=== PATIENT | male | born 1945 | race Caucasian/White ===

== ENCOUNTER 2016-04-24 13:37 | Emergency (ER) | payer MEDICARE ==
[~2016-04-24] VITALS: Ht 180.3 cm; Wt 104.6 kg
[~2016-04-24 13:37] MED LIST: AMLO10 PO; ASPI81 PO; ATEN1TAB75 PO; ATOR40TA49 PO; AVOD0.5C PO; HYOS1SUB; LISI40TA PO
[2016-04-24 13:44] VITALS: BP 142/88; PULSE 91; RESP 18; TEMP 99.7; O2SAT 91
[2016-04-24] MEDS ORDERED: SODIUM CHLORIDE 0.9% FLUSH 5 ML FLUSH IVF PRN (14:15)
--- NOTE | 2016-04-24 14:39 | PD ---
HPI Chief Complaint: Abdominal Pain Time Seen by Provider: 14:21 Travel History International Travel<30 days: No Contact w/Intl Traveler<30days: No Traveled to known affect area: No History of Present Illness HPI This 71-year-old man who presents to the emergency department complaining of pain in lower abdominal cramping as well as bloody stools. He states he's had symptoms off and on for a couple weeks. He's had worsening pelvic or abdominal pain and cramping. He saw his urologist eutherasto prostatitis and put him on Cipro. He's been taking this for a little over a week. Low-grade fevers. He started developing worsening lower abdominal pain and cramping especially in his left for abdomen as well as stool changes including mucoid stools and bloody stools. Only past abdominal surgical history is remote appendectomy. Colonoscopy about 2 years ago or so with a removed a polyp, unclear. Diverticular disease or not. He otherwise has been feeling generally well and healthy. History Past Medical History Narrative Medical History of prostatitis, on Cipro now Chronic kidney disease CAD, status post stent Hypertension hyperlipidemia Social History Alcohol Use: Yes ("occasionally" BEER, WINE) Tobacco Use: No Allergies-Medications (Allergen,Severity, Reaction): Coded Allergies: Levaquin (Verified Allergy, Severe, HIVES, 04/24/16) Reported Meds & Prescriptions Reported Meds & Active Scripts Active Reported Cipro (Ciprofloxacin HCl) 500 Mg Tab 500 Mg PO BID Hyoscyamine (Hyoscyamine Sulfate) 0.125 Mg Tab 0.125 Mg PO Q6H Lisinopril 40 Mg Tab 40 Mg PO DAILY Atorvastatin (Atorvastatin Calcium) 40 Mg Tab 40 Mg PO HS Atenolol 50 Mg Tab 50 Mg PO BID Aspirin Low Dose (Aspirin) 81 Mg Chew 81 Mg CHEW DAILY Amlodipine (Amlodipine Besylate) 10 Mg Tab 10 Mg PO DAILY Review of Systems Except as stated in HPI: all other systems reviewed are Neg Physical Exam Narrative GENERAL: Well-appearing 71-year-old man, no acute distress. SKIN: Warm and dry. HEAD: Atraumatic. Normocephalic. EYES: Pupils equal and round. No scleral icterus. No injection or drainage. ENT: No nasal bleeding or discharge. Mucous membranes pink and moist. NECK: Trachea midline. No JVD. CARDIOVASCULAR: Regular rate and rhythm. No murmur appreciated. RESPIRATORY: No accessory muscle use. Clear to auscultation. Breath sounds equal bilaterally. GASTROINTESTINAL: Abdomen is obese, soft, with moderate tenderness in the left lower quadrant, minimal diffuse tenderness throughout. No rebound or guarding. MUSCULOSKELETAL: No obvious deformities. No edema. NEUROLOGICAL: Awake and alert. No obvious cranial nerve deficits. Motor grossly within normal limits. Normal speech. Data Data Last Documented VS Vital Signs Date Time Temp Pulse Resp B/P Pulse Ox O2 Delivery O2 Flow Rate FiO2 04/24/16 16:13 84 20 163/80 92 Room Air 04/24/16 13:44 99.7 Orders Complete Blood Count With Diff (04/24/16 14:10) Comprehensive Metabolic Panel (04/24/16 14:10) Lipase (04/24/16 14:10) Lactic Acid (04/24/16 14:10) Urinalysis - C+S If Indicated (04/24/16 14:10) Iv Access Insert/Monitor (04/24/16 14:10) Sodium Chloride 0.9% Flush (Ns Flush) (04/24/16 14:15) Sodium Chlor 0.9% 1000 Ml Inj (Ns 1000 M (04/24/16 14:45) Ct Abd/Pel W/O Iv Contrast (04/24/16 ) Labs Laboratory Tests Test 04/24/16 14:20 White Blood Count 7.3 TH/MM3 Red Blood Count 5.07 MIL/MM3 Hemoglobin 13.9 GM/DL Hematocrit 43.1 % Mean Corpuscular Volume 85.0 FL Mean Corpuscular Hemoglobin 27.5 PG Mean Corpuscular Hemoglobin 32.3 % Concent Red Cell Distribution Width 13.9 % Platelet Count 212 TH/MM3 Mean Platelet Volume 8.1 FL Neutrophils (%) (Auto) 76.7 % Lymphocytes (%) (Auto) 12.5 % Monocytes (%) (Auto) 10.0 % Eosinophils (%) (Auto) 0.5 % Basophils (%) (Auto) 0.3 % Neutrophils # (Auto) 5.7 TH/MM3 Lymphocytes # (Auto) 0.9 TH/MM3 Monocytes # (Auto) 0.7 TH/MM3 Eosinophils # (Auto) 0.0 TH/MM3 Basophils # (Auto) 0.0 TH/MM3 CBC Comment DIFF FINAL Differential Comment Urine Collection Type CLEAN CATCH Urine Color YELLOW Urine Turbidity CLEAR Urine pH 6.5 Urine Specific [place] 1.022 Urine Protein 100 mg/dL Urine Glucose (UA) NEG mg/dL Urine Ketones NEG mg/dL Urine Occult Blood NEG Urine Nitrite NEG Urine Bilirubin NEG Urine Leukocyte Esterase NEG Urine RBC 0-3 /hpf Urine Squamous Epithelial 0-5 /hpf Cells Urine Hyaline Casts 20-24 /lpf Microscopic Urinalysis Comment CULT NOT INDICATED Urine Collection Time 14:20 Sodium Level 141 MEQ/L Potassium Level 3.2 MEQ/L Chloride Level 104 MEQ/L Carbon Dioxide Level 28.7 MEQ/L Anion Gap 8 MEQ/L Blood Urea Nitrogen 20 MG/DL Creatinine 1.70 MG/DL Estimat Glomerular Filtration 40 ML/MIN Rate Random Glucose 105 MG/DL Lactic Acid Level 0.8 mmol/L Calcium Level 8.5 MG/DL Total Bilirubin 0.5 MG/DL Aspartate Amino Transf 25 U/L (AST/SGOT) Alanine Aminotransferase 34 U/L (ALT/SGPT) Alkaline Phosphatase 93 U/L Total Protein 7.5 GM/DL Albumin 3.3 GM/DL Lipase 197 U/L [facility] Medical Decision Making Medical Screen Exam Complete: Yes Emergency Medical Condition: Yes Interpretation(s) LABS: CBC is unremarkable. CMP is remarkable for mildly elevated BUN and creatinine. Lipase is normal Lactate is 0.8 UA is unremarkable. Some hyaline casts. Differential Diagnosis Diverticulitis, colitis, enteritis, prostatitis, abscess, other Narrative Course Medical decision making INITIAL: 70-year-old male with pelvic pain, left lower quadrant tenderness, stool changes, suggestive of diverticulitis. Currently on Cipro for prostatitis. Possible abscess. We'll check labs, IV fluids, CT imaging, reassess. FINAL: CT scan confirms a month: Diverticulitis. Multiple incidental CT findings. We will need follow-up. Diagnosis Primary Impression: Sigmoid diverticulitis Additional Instructions: Use Lortab if needed for pain. Continue Cipro and Flagyl. Drink plenty of fluids stay well-hydrated. Follow up with her primary doctor in 3-5 days. There are multiple small incidental findings a CAT scan that need follow-up. Return to the emergency department for any new or worsening symptoms. Med/Other Pt SpecificInfo: Prescription(s) given Scripts Metronidazole (Flagyl)500 Mg Vsh317 Mg PO TID 14 Days Ref 0 Prov:Albert Tapia MD 04/24/16 Ciprofloxacin (Cipro)500 Mg Led860 Mg PO BID 10 Days Prov:Albert Tapia MD 04/24/16 Disposition: 01 DISCHARGE HOME Condition: Stable Albert Tapia MD Apr 24, 2016 14:39
[2016-04-24 14:42] LABS: AUTOMATED NEUTROPHIL # 5.7 TH/MM3 (1.8-7.7); BASOPHIL % 0.3 % (0.0-2.0); EOSINOPHIL % 0.5 % (0.0-4.0); HEMATOCRIT 43.1 % (39.0-51.0); HEMO FLAGS DIFF FINAL; LYMPH % 12.5 % (9.0-44.0); LYMPHOCYTE # 0.9 TH/MM3 (1.0-4.8); MEAN CORPUSCULAR HEMOGLOBIN 27.5 PG (27.0-34.0); MEAN CORPUSCULAR HGB CONC 32.3 % (32.0-36.0); NEUT % 76.7 % (16.0-70.0); PLATELET COUNT 212 TH/MM3 (150-450); RED BLOOD COUNT 5.07 MIL/MM3 (4.50-5.90); RED CELL DISTRIBUTION WIDTH 13.9 % (11.6-17.2); WHITE BLOOD COUNT 7.3 TH/MM3 (4.0-11.0)
[2016-04-24 14:44] VITALS: BP 150/86; PULSE 84; RESP 18; O2SAT 92
[2016-04-24 14:45] LABS: BLOOD, URINE NEG (NEG); GLUCOSE,URINE NEG (NEG); KETONE, URINE NEG (NEG); NITRITE,URINE NEG (NEG); PH, URINE 6.5 (5.0-8.5)
[2016-04-24] MEDS ORDERED: SODIUM CHLOR 0.9% 1000 ML INJ 1,000 ML IV SCH (14:45)
[2016-04-24 14:49] LABS: CHLORIDE 104 MEQ/L (98-107); POTASSIUM 3.2 MEQ/L (3.5-5.1); SODIUM (NA) 141 MEQ/L (136-145)
[2016-04-24 14:51] LABS: METHOD OF COLLECTION CLEAN CATCH
[2016-04-24] MEDS ORDERED: AMLO10TA2 PO (14:51)
[2016-04-24 14:52] LABS: COMMENT (UR) CULT NOT INDICATED; CULTURE IF INDICATED CULT NOT INDICATED; RBC, URINE 0-3 /hpf (0-3); SQUAMOUS EPITHELIAL CELL URINE 0-5 /hpf (0-5); URINE COLOR YELLOW (YELLW/STRAW)
[2016-04-24 14:53] LABS: ANION GAP 8 MEQ/L (5-15); BICARBONATE 28.7 MEQ/L (21.0-32.0); BLOOD UREA NITROGEN 20 MG/DL (7-18)
[2016-04-24 14:56] LABS: ALT (GPT) 34 U/L (12-78); AST (GOT) 25 U/L (15-37); GLOMERULAR FILTRATION RATE 40 ML/MIN (>89)
[2016-04-24 14:58] LABS: TOTAL BILIRUBIN ADULT 0.5 MG/DL (0.2-1.0)
[2016-04-24 14:59] LABS: ALKALINE PHOSPHATASE 93 U/L (45-117)
[2016-04-24] MEDS ORDERED: ATEN50TA PO (15:00)
[2016-04-24] MEDS ORDERED: ATOR40TA16 PO (15:00)
[2016-04-24] MEDS ORDERED: HYOS0.128 PO (15:00)
[2016-04-24] MEDS ORDERED: ASPI81CH37 CHEW (15:00)
[2016-04-24] MEDS ORDERED: CIPR-9 PO ×2 (15:00→16:58)
[2016-04-24] MEDS ORDERED: LISI40TA PO (15:00)
[2016-04-24 16:13] VITALS: BP 163/80; PULSE 84; RESP 20; O2SAT 92
--- NOTE | 2016-04-24 16:52 | RADHPO ---
EXAM DATE/TIME: 04/24/2016 15:24 [place] COMPARISON: No previous studies available for comparison. INDICATIONS : Lower abdomen pain and bloody stool for two days. ORAL CONTRAST: No oral contrast ingested. RADIATION DOSE: 20.01 CTDIvol (mGy) MEDICAL HISTORY : Hypertension. SURGICAL HISTORY : Appendectomy. ENCOUNTER: Initial ACUITY: 2 days PAIN SCALE: 7/10 LOCATION: Bilateral lower quadrant TECHNIQUE: Volumetric scanning of the abdomen and pelvis was performed. Using automated exposure control and adjustment of the mA and/or kV according to patient size, radiation dose was kept as low as reasonably achievable to obtain optimal diagnostic quality images. FINDINGS: There are diverticula seen in the sigmoid colon. There does appear to be an area of thickening of th e diverticula with surrounding inflammatory change seen in the distal sigmoid colon in the lower pelv is consistent with an area of diverticulitis. An abscess is not seen. There is an area of low density seen in the anterior aspect of the liver likely representing a cyst o r hemangioma measuring 1.2 cm. There is a small calcified gallstone present. There is a subtle hypo density seen in the upper posterior aspect of the spleen. The most common hypodensity in the spleen would be a hemangioma. The pancreas and left adrenal gland are normal. There is a 1.7 cm mass at th e right adrenal gland. This is nonspecific. There are small nonobstructing stones seen in the kidne ys bilaterally. The patient has several hypodensities seen at the kidneys likely representing cysts. There is a hyperdense mass seen at the posterolateral right kidney measuring 2.3 cm. There is some calcification seen at the right lateral mid cortex. The patient has a hyperdense area seen at the a nterolateral mid left kidney measuring 1.2 cm. Patient also has an area of induration of the fat adj acent to the superolateral left kidney. An exophytic fat-containing lesion such as an angiomyolipoma could have a similar appearance. This area measures 3.3 cm in greatest dimension. Hydronephrosis i s not appreciated. Atherosclerotic calcifications are seen throughout the arterial system but no ane urysm is seen. Prostatic calcifications are present. Degenerative change is seen in the lumbar spin e. The lung bases are clear. CONCLUSION: 1. Sigmoid colon diverticulitis. 2. Small gallstone. 3. Small hypodensities in the liver and spleen likely representing cysts or hemangiomas. 4. Multiple masses in the kidneys likely representing cysts. There are some hyperdense masses which could represent hyperdense cysts such as proteinaceous or hemorrhagic cysts. They are nonspecific o n this noncontrast CT examination. The patient also has an area of indurative fat that is well encap sulated adjacent to the lateral left kidney likely representing the sequela of a prior injury or an a ngiomyolipoma. 5. Nonspecific 1.7 cm right adrenal gland mass. The most common mass would be an adenoma. This is too dense to be confirmed as an adenoma on this study. Tate Ross MD on April 24, 2016 at 15:51 Board Certified Radiologist. This report was verified electronically.
[2016-04-24] MEDS ORDERED: METR-1 PO (16:58)
[2016-04-24] MEDS ORDERED: HYDR-3533 PO (17:20)
== END 2016-04-24 17:24 | disposition home or self-care (01) ==
LOC: PHED 13:37
DX: K57.32 Diverticulitis of large intestine without perforation or abscess without bleeding (principal); N41.9 Inflammatory disease of prostate, unspecified; K92.1 Melena; R93.3 Abnormal findings on diagnostic imaging of other parts of digestive tract; R93.422 Abnormal radiologic findings on diagnostic imaging of left kidney; R93.421 Abnormal radiologic findings on diagnostic imaging of right kidney; R93.8 Abnormal findings on diagnostic imaging of other specified body structures; I25.10 Atherosclerotic heart disease of native coronary artery without angina pectoris; I12.9 Hypertensive chronic kidney disease with stage 1 through stage 4 chronic kidney disease, or unspecified chronic kidney disease; N18.9 Chronic kidney disease, unspecified; E78.5 Hyperlipidemia, unspecified; Z98.61 Coronary angioplasty status
CPT/HCPCS: 74176; 80053; 81001; 83605; 83690; 85025; 96360; 99285; J7030

== ENCOUNTER → 2016-06-13 | Day surgery (SDC) | payer MEDICARE ==
[~2016-06-13] MED LIST changes: -AMLO10 PO; +AMLO10TA2 PO; -ASPI81 PO; +ASPI81CH37 CHEW; -ATEN1TAB75 PO; +ATEN50TA PO; +ATOR40TA16 PO; -ATOR40TA49 PO; +ATROPINE SULFATE 1% OPHT SOLN 2 ML BTL ONE; -AVOD0.5C PO; +BACITRACIN IM FOR SOLN 50,000 UNIT VIAL ONE; +CIPR-9 PO; +DEXAMETHASONE SOD PHOS 4 MG/ML VIAL ONE; +EPINEPHrine HCL (1:1000) 1 MG/ML VIAL ONE; +FLURBIPROFEN 0.03% OPHT SOLN 2.5 ML BTL ONE; +HYALURONIDASE/LIDOCAINE/BUPIVACAINE 11 ML SYR TL ONE; +HYDR-3533 PO; +HYOS0.128 PO; -HYOS1SUB; +LACTATED RINGER'S 1000 ML INJ 1,000 ML ONE; +LIDOCAINE HCL 4% PF 5 ML AMP ONE; +METR-1 PO; +NEOMYCIN/POLYMYXIN/DEXAMETHASONE OPTH OINT 3.5 GM TUBE ONE; +PHENYLEPHRINE HCL 2.5 % OPTH SOLN 15 ML BTL ONE; +SODIUM CHLORIDE 0.9% 20 ML VIAL ONE; +SODIUM CHLORIDE 0.9% INJ 10 ML ONE; +TROPICAMIDE 1% OPHT SOLN 15 ML BTL ONE; +ceFAZolin INJ 1,000 MG VIAL ONE
--- NOTE | 2016-06-16 14:39 | TN ---
cc: PROSPER LOMBARDO MD DATE OF SURGERY 06/13/2016 PREOPERATIVE DIAGNOSIS Epiretinal membrane left eye POSTOPERATIVE DIAGNOSIS Epiretinal membrane left eye PROCEDURE Pars plana vitrectomy, membrane pealing left eye ANESTHESIA MAC SURGEON Fran Lombardo MD COMPLICATIONS None PROCEDURE IN DETAIL After informed consent was obtained, the patient was brought to the operating room, placed under brief anesthesia with Propofol. 10 cc of 50/50 mixture of 0.75% Marcaine 2% Lidocaine was placed in a modified Van Lint lid block as well as peribulbar injection. The patient was then prepared and draped in usual sterile fashion. A wide lid speculum was placed in the patient's left eye. A 23-gauge vitrectomy cannulas were then placed in the lower temporal, superotemporal and superonasal quadrants 3 mm posterior to the cornea scleral limbus. Infusion cannula was placed lower temporally. A core vitrectomy was then performed. The vitrectomy is carried out as far as possible to vitreous space. Attention was then turned to the posterior pole where there was an epiretinal membrane covering the surface of the macula. It was carefully peeled off the macula with intraocular forceps. The same was then done for the internal limiting membrane. Careful indirect ophthalmoscopy with scleral depression was then performed and no peripheral retinal breaks were noted. The three vitrectomy cannulas were then removed. Subconjunctival injections of dexamethasone and Ancef were placed. An Atropine drop, Maxitrol ointment and a patch shield were then applied. The patient tolerated the procedure well. There were no complications. [facility]. Prosper Lombardo MD TAB/DJL /6:47 PM /2:30 PM
== END | disposition home or self-care (01) ==
LOC: ESDC 11:48
PROVIDERS: ATTEND Ophthalmology Retina Specialist
DX: H35.372 Puckering of macula, left eye (principal)
CPT/HCPCS: 00145; 67042; J0171; J0690; J1100; J7120